=== PATIENT | male | born 1960 | race Caucasian/White ===

== ENCOUNTER 2020-05-27 11:16 | Day surgery (SDC) | payer MEDICAID, SELFPAY ==
[2020-05-27] VITALS (8 sets, daily range): BP systolic 90–127; BP diastolic 68–83; PULSE 62–70; RESP 16–20; TEMP 36.1–36.8; O2SAT 98–100; BMI 28.2
[2020-05-27] MEDS: Lactated Ringers 1,000 ML 100 ML IV (12:17)
[2020-05-27] MEDS: Ropivacaine 0.5% 30 ML Vial (15:05)
[2020-05-27] MEDS: Triamcinolone Acetonide 40 MG/ML Vial (15:06)
--- NOTE | 2020-05-27 15:06 | PCM.HP.BLA ---
History and Physical I have re-examined the patient. There are no clinical changes since date of exam. Intake Intake Visit Reasons: Bilat wrist HPI Bilat wrist: Surgical H&P: Yes Details: Parts of this documentation were recorded by a scribe, this documentation accurately reflects the service provided and the decisions made by me, Dr. Sandra Vu, DO 04/16/20 0912. DAIN MURO is a 60 year old M NEW patient here today for He states that he has had BL wrist/hand pain for many years and the pain has increased pain over the last year. Right greater than left. He states that it is hard to determine which hand is worse. He states that he has BL hand pain into the 1st through 3rd fingers. 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 He states that he has increased pain with writing. Denies any injections or surgery on the BL wrists. He has had an EMG completed which showed moderate to severe carpal tunnel on the right and moderate on the left. Ortho Exam General General: Yes no acute distress Neurologic: Yes alert, Yes oriented x3 Right Wrist/Hand Skin/Wound: Yes CDI, No Swelling, No Ecchymosis Right Wrist: Yes Durken's Test Motor: EPL: 5, FDP-2: 4, 1st Dorsal Interosseous: 5, APB: 4 Sensation: Radial: I, Ulnar: I, Median: D Left Wrist/Hand Skin/Wound: Yes CDI, No Swelling, No Ecchymosis Left Wrist: Yes Durken's Test Motor: EPL: 5, FDP-2: 4, 1st Dorsal Interosseous: 5, APB: 4 Sensation: Radial: I, Ulnar: I, Median: D WRIST: thenar atrophy Assessment & Plan Problems 1. Bilateral carpal tunnel syndrome G56.03 Plan .Obtained X-rays of patient's bilateral wrist. Personally reviewed x-rays. There is no obvious fracture, dislocation, or lucency noted. Personally reviewed the patients EMG which showed moderate to severe carpal tunnel in his left, and moderate in his right. Educated the patient about the anatomy of the hand and etiology of his symptoms. Spoke with him about the surgery procedure, the risks and benefits. The goal of surgery is to prevent weakness and worsening. Explained he may return to all activities as he tolerates. He should not lift greater than 10 pounds. Patient should keep his incisions clean. If he does not want to proceed with surgery, he may have a steroid injection. Recommended he wear splints at night. Reviewed the pre-operative plans with the patient. Risks and benefits of the procedure were fully explained, including but not limited to infection, neurovascular injury, continued pain, arthritis, stiffness, need for further surgery, re-injury, DVT, PE, general risks of anesthesia, and loss of limb or life. The patient understands all the risks and does wish to proceed with written consent. Follow up in 2 week post op or sooner if pain, swelling, numbness or associated symptoms, or concerns develop. All questions answered. Patient in agreement of plan. Orders Orders: Wrist min 3 Views Today G56.02 Wrist min 3 Views Today G56.01 Coding Level of Care Code 83361 Diagnoses Bilateral carpal tunnel syndrome G56.03 COVID (Procedure Consent) Procedure Criteria Procedure Criteria: Yes Elective
[2020-05-27] MEDS: Mupirocin Ointment 22gm Tube 1 APPLIC (15:07)
--- NOTE | 2020-05-27 15:08 | PCM.DC.ORTHO ---
Discharge Diet: No Restrictions - Leave dressing on until seen in postop clinic in 10-14 days for suture removal, keep dressing clean, dry, intact; change dressing if gets wet/dirty, call with concerns Discharge Activity: May Not Drive May shower in (days): 1 Ice area for (Minutes): 20 - Every hour while awake. Weight Bearing Status: Weight bearing as tolerated Keep extremity elevated above heart level: Operative Extremity Call your doctor if your incision/area has: Continuous Slow Oozing, Sudden Increased Bleeding, Increased Pain/ Swelling, Increased Redness, Foul Smelling Discharge Call your doctor if you observe: Fever of 101 or Higher, Coldness, Increased Pain, Numbness or Tingling, Change in Color, Calf discomfort Allergies/Adverse Reactions: Allergies No Known Allergies Allergy (Verified 05/27/20 11:48) Medications to take at Discharge Gabapentin [Neurontin] 100 mg PO 4X/DAY 05/06/20 Ibuprofen/Diphenhydramine Cit [Advil Pm Caplet] 1 each PO QHS 05/06/20 Melatonin/Pyridoxine HCl (B6) [Melatonin 10 mg Tablet] 1 each PO QHS 05/06/20 Naproxen Sodium [Aleve] 220 mg PO DAILY 05/06/20 Acetaminophen/Codeine #3 [Tylenol #3 Tablet] 1 - 2 tablet PO Q6H PRN PRN #30 tablet 05/27/20 Ibuprofen 200 mg PO PRN 05/27/20 The following prescriptions were given: Acetaminophen/Codeine #3 [Tylenol #3 Tablet] 1 - 2 tablet PO Q6H PRN PRN #30 tablet PRN Reason: Pain Transmission Status: Sent to [facility] Primary Care Physician: Ronni Gomes MD [Primary Care Provider] - Test Results: Test results from this visit will be discussed in further detail at your follow-up appointment, if applicable. Please Follow Up With: Sandra Vu, DO - [phone]
--- NOTE | 2020-05-27 15:08 | PCM.OPRPT ---
Report of Operation Date of Procedure: 05/27/20 Pre-Operative Diagnosis: bilateral carpal tunnel syndrome Post-Operative Diagnosis: same Surgery/Procedure Performed:: left carpal tunnel release, right carpal tunnel injection health records technology teacher: Carlos Gregory Type of Anesthesia:: Block,Micki Anesthesiologist: Sb Acevedo Estimated Blood Loss (mL): min Fluids Replaced: 500cc lr Description of Procedure: Preoperative note Patient is a { 60 } patient with nerve conduction study confirming bilateral carpal tunnel syndrome. Patient failed conservative treatment for carpal tunnel elected proceed with left carpal tunnel release, right cparal tunnel injection. Risks benefits and alternatives surgery discussed with patient. Risks including but not limited to blood loss, blood clot, infection, neurovascular injury, failure procedure, loss of life and loss of limb. Patient is aware like proceed with left carpal tunnel release and right crpal tunnel injection. Operative note Patient seen and examined preoperative holding area. Left hand was marked. History and physical and consent reviewed. Patient was brought to the operating room placed supine on the operating table. Sign in, anesthesia, antibiotics were administered. Left upper extremity was prepped and draped after [place] block was initiated. All bony prominences well-padded SCDs placed on bilateral lower extremities. We marked out our incisions for our carpal tunnel release at the intersection of Yo's line in the fourth ray flexed. We extended about a centimeter and a half. Timeout was performed. We then checked ensure that the [place] block was working with pickups which it was. We then used a 15 blade to make a skin incision. We then dissected down tenotomy syllable of the transverse carpal ligament. We then used a new 15 blade cut through the transverse carpal ligament down to the level of the median nerve. We then further released the median nerve the combination of the 15 blade and tenotomies. The nerve was grayish in color and adherent to the transverse carpal ligament volarly. We released the transverse carpal ligament distally to the fat pad and then proximally under standard technique. We then palpated to ensure that we released all of the transverse carpal ligament which we did. We irrigated the incision with copious amounts of sterile saline. All bleeders were coagulated. The incision was closed with interrupted 4-0 nylon stitches. Tourniquet was deflated for total working time of 14 minutes. We then moved to our right carpal tunnel injection under standard sterile technique 1 cc ropivacaine 1/2 cc Kenalog 40 was injected into the carpal tunnel without issue Band-Aid was applied. Patient tolerated procedure well there were no complications. Patient transferred to recovery room in stable condition. Postoperative note Hospital pharmacy has prescription Leave dressing clean dry and intact Follow-up in 2 weeks Call with concerns This note was generated with [employer] dictation software. It may contain incorrect words, spelling, and punctuation that were not noted in checking the note before signing.
== END 2020-05-27 16:35 | disposition home or self-care (01) ==
LOC: SDC 11:19 → AC 11:20
PROVIDERS: PCP Family Medicine; Referring Provider Orthopaedic Surgery; Visit Provider Orthopaedic Surgery
PROC: (CPT 64721; principal; 2020-05-27 13:30)
DX: G56.03 Carpal tunnel syndrome, bilateral upper limbs (principal); Z20.828 Contact with and (suspected) exposure to other viral communicable diseases
CPT/HCPCS: 01810; 20605; 64721; 87426; C9803; J7120

== ENCOUNTER 2021-05-18 05:55 | Day surgery (SDC) | payer MEDICAID, SELFPAY ==
[2021-05-18] VITALS (7 sets, daily range): BP systolic 99–137; BP diastolic 70–82; PULSE 51–61; RESP 12–16; TEMP 36.1–36.6; O2SAT 99–100; BMI 28.4
[2021-05-18] MEDS: Lactated Ringers 1,000 ML 15 ML IV (06:46)
[2021-05-18] MEDS: Lidocaine 2% /Epi 1:100 (50ml) 50 ML Vial (07:24)
--- NOTE | 2021-05-18 07:25 | PCM.HP.BLA ---
History and Physical Date of Admission: 05/18/21 Date of Service: 04/07/21 MR#:[id number]:[id number]: DAIN MURO #:[id number]:[id number] Provider:Dr. Duran Sotelo DOAge/Sex: 61/M Location:[facility]:Signed Intake Intake Visit Reasons: RIGHT HAND Allergies No Known Allergies Allergy (Verified 04/07/21 08:14) Medications gabapentin 100 mg PO 4X/DAY 05/06/20 [History Confirmed 04/07/21] ibuprofen-diphenhydramine cit 1 each PO QHS 05/06/20 [History Confirmed 04/07/21] melatonin-pyridoxine HCl (B6) 1 each PO QHS 05/06/20 [History Confirmed 04/07/21] naproxen sodium 220 mg PO DAILY 05/06/20 [History Confirmed 04/07/21] lorazepam 1 mg tablet 1 mg PO tab 04/07/21 [History Confirmed 04/07/21] PFSH Social History (Updated 06/11/20 @ 11:[address] Sandra Vu DO) Smoking Status: Never smoker HPI RIGHT HAND Details: Parts of this documentation were recorded by a scribe, this documentation accurately reflects the service provided and the decisions made by me, Dr. Duran Sotelo DO 04/07/21 0758. DAIN MURO is a 61 year old M here today for bilateral hand stiffness and righ hand , numbness, and tingling into radial digits. Patient has known carpal tunnel for over a year he did have previous EMG and he did have left open carpal tunnel release with Dr. Burton 05/27/2020 at which time he also had a right carpal tunnel injected. Carpal tunnel injection at that time did help for several months. He has failed bracing. Pt denies any previous surgeries on the right hand. Pt states she does a lot of work with his hands. Pt states he thinks he has arthritis in both hands and is questioning if there is anything to help with this pain/discomfort/stiffness which is worse at night time. Pt states he takes Aleve as needed and Advil PM. Pt states he is wanting to schedule CTR on right wrist. Pt had CTR on left wrist 05/27/20 which was effective. Ortho Exam General General: Yes no acute distress Neurologic: Yes alert and Yes oriented x3 Psychologic: Yes reasonable and appropriate Right Wrist/Hand Skin/Wound: No Swelling, No Ecchymosis, Yes nail intact and Yes capillary refill normal Right Wrist: Yes ROM-Pronation 0-80 (60), ROM-Supination 0-90 (80), Durken's Test, Tinel's and Phalen's; No Thenar Atrophy WRIST: multiple small scars on forearm There is some stiffness with finger flexion bilateral hands pronation of the right hand and wrist range of motion There is no erythema swelling of MCP joints or tenderness palpation of either hands or fingers Left Wrist/Hand Skin/Wound: No Swelling and No Ecchymosis Supplemental Info 04/07/2021 x-ray left hand no acute findings no significant arthrosis 04/07/2021 x-ray right hand: No acute findings no significant arthrosis 04/15/2020 EMG right upper extremity: moderate carpal tunnel Coding Level of Care Code Off vis,est,level 4 Diagnoses Carpal tunnel syndrome, right G56.01 Stiffness of joints of both hands M25.641; M25.642 Assessment and Plan Assessment and Plan (1) Carpal tunnel syndrome, right: Status: Acute (2) Stiffness of joints of both hands: Status: Acute Plan - Dr. Duran Sotelo, DO: Patient has electrodiagnostic evidence of carpal tunnel syndrome moderate degree from 2020 about a year ago. Did respond well to injection at that time and has had recurrence of symptoms and has failed conservative bracing. He does wish to proceed with open carpal tunnel release we will schedule accordingly. In regards to his hand and finger stiffness. There is no concerning arthrosis on his hand x-rays today there is no family history of autoimmune disease we did offer a consultation for rheumatology however at this point I think he will hold off. We did discuss and he will try Voltaren cream 1% on B/L hands 2 grams QID. Risks, benefits and alternatives of surgery reviewed including risk of bleeding, infection, nerve, artery and/or tissue damage continued pain or symptoms and expected post-operative course. Postoperative restrictions reviewed incisional hypersensitivity and pillar pain reviewed. He understands any is to keep the incision area clean after surgery. And the risk of continued symptoms considering duration of carpal tunnel. He understands this would not help with his finger and hand stiffness. Follow-up 2 weeks postop Plan Details Other Orders: Orders: Hand Min 3 Views Today R52 Hand Min 3 Views Today R52 04/07/21 0914<Electronically signed by Duran Sotelo DO>Date Duran Sotelo DO Cosigner Signature:Date I have re-examined the patient. There are no clinical changes since date of exam
[2021-05-18] MEDS: Cefazolin 2 GM in 0.9% Normal Saline 100 ML IV (07:30)
--- NOTE | 2021-05-18 07:54 | PCM.OPRPT ---
Report of Operation Date of Procedure: 05/18/21 Description of Surgical Findings:: Preoperative diagnosis; right carpal tunnel syndrome Postoperative diagnosis; same Procedure: Right open carpal tunnel release Anesthesia: Local with MAC Tourniquet time; 10 minutes 250 mm Hg Complications: None Indication for procedure; This is a 61-year-old male with long-standing symptoms consistent with carpal tunnel syndrome the patient did have electrodiagnostic evidence of this and has failed conservative treatment. Risks benefits and alternatives were reviewed including risks of bleeding infection nerve artery tissue damage need for further surgery and continued pain and symptoms, hypersensitivity to scar and Pillar pain. Procedure; The patient was met in the preoperative holding area the operative extremity was identified by both patient and physician and was marked the patient was met by anesthesia and brought back to the operating room and transferred to the operating table in the supine position. Anesthesia was started. A well-padded tourniquet was placed on the operative upper extremity. The patient was prepped and draped in the usual sterile fashion. A timeout was called to ensure the proper patient procedure and extremity were being contemplated. 0.5 percent lidocaine with epinephrine was injected into the incisional area. An Esmarch was used to exsanguinate the extremity. The tourniquet was inflated to 250 mmHg. A midline incision was made with a 15 blade scalpel between the thenar and hypothenar eminence. This was carried down through the skin and subcutaneous tissue. Tawana retractors were then used, a deep blade scalpel was used to make a deep incision in the palmar aponeurosis. The tawana retractors were then placed deep to this and the transverse carpal ligament was identified a perforation was made with a scalpel and a Littler scissors were used to complete the release of the transverse carpal ligament distally under direct visualization with the tips facing ulnarly until the perivascular fat was reached. Then turning our attention proximally using a tension slide technique the proximal extent of the transverse carpal ligament was released . There was noted to be hourglass configuration to the median nerve and hypertrophy of the transverse carpal ligament there was some adhesions of the nerve to the transverse carpal ligament which were gently dissected off with the Littler scissors. The wound was thoroughly irrigated and was closed with 4-0 nylon vertical mattress stitches. Dressing was applied in the form of xeroform 4 x 4, web roll and an clarence wrap. Tourniquet was let down there is no intraoperative complications patient tolerated the procedure well and was transferred to the PACU. All counts were correct.
--- NOTE | 2021-05-18 07:55 | EX.PCM.DISCH ---
Discharge Instructions Diet Discharge Diet: No restrictions Activity Additional Activity Instructions:: Ice and elevate operative extremity next 72 hours. Keep dressing on clean and dry for 48 hours then may remove and allow warm soapy water to rinse over incision but do not submerge until sutures are out. Then apply bandaid over incision and change daily. encourage finger range of motion. Not lift more than 1/2 pound. Minimize narcotic use only as needed and directed, may use OTC NSAID and Tylenol to supplement/substitute for pain control. Follow Up Care Please Follow Up With: Duran Sotelo DO When: 2 weeks Test Results: Test results from this visit will be discussed in further detail at your follow-up appointment, if applicable. Discharge Plan Admission Attending Provider: Duran Sotelo Primary Care Provider: Ronni Gomes Discharge Orders/Prescriptions Prescriptions: New oxycodone 5 mg tablet 5 mg PO Q4H PRN (Reason: pain) 3 Days Qty: 10 RF: 0 No Action lorazepam 1 mg tablet 1 mg PO QHS RF: 0 naproxen sodium 220 MG tablet 220 mg PO DAILY RF: 0 gabapentin 100 MG capsule 300 mg PO BID RF: 0 ibuprofen-diphenhydramine cit 1 EACH tablet 1 each PO QHS RF: 0 melatonin-pyridoxine HCl (B6) 1 EACH tablet,ext release multiphase 1 each PO QHS RF: 0 Referrals / Follow Up: Ronni Gomes MD [Primary Care Provider] - Disposition Disposition (needs filled in before D/C Order can be placed): Home, Self Care
== END 2021-05-18 23:59 | disposition home or self-care (01) ==
LOC: SDC 05:57 → AC 05:58
PROVIDERS: PCP Family Medicine; Referring Provider Orthopaedic Surgery; Visit Provider Orthopaedic Surgery
PROC: (CPT 64721; principal; 2021-05-18 07:15)
DX: G56.01 Carpal tunnel syndrome, right upper limb (principal); M25.641 Stiffness of right hand, not elsewhere classified; M25.642 Stiffness of left hand, not elsewhere classified; Z79.899 Other long term (current) drug therapy
CPT/HCPCS: 64721; 01810; J7120; J2405